=== PATIENT | female | born 1975 | race Caucasian/White ===

== ENCOUNTER 2022-07-24 08:40 | Outpatient (CLI) | payer OTHER, SELFPAY ==
--- NOTE | ~2022-07-24 | MMUS_ITS ---
EXAMINATION: MM diagnostic damaris BI w fabian, US breast RT limited HISTORY: Palpable lump in the upper outer quadrant of the right breast TECHNIQUE: Craniocaudal, mediolateral, and mediolateral oblique 3-D tomosynthesis images of the esha ts were performed and synthetic 2-D images were generated. CAD analysis was submitted and interpreted . High resolution limited by breast ultrasound was performed. COMPARISON: No prior mammogram is currently available for comparison. BREAST PARENCHYMAL COMPOSITION: The breasts are heterogeneously dense, which may obscure small masses . FINDINGS: MAMMOGRAPHIC FINDINGS: Right breast: Approximately 4.0 x 3.7 cm irregular, spiculated, high density mass with associated idania cification the middle third of the upper-outer quadrant of the breast at the 11:00 location 6 cm from the nipple corresponding to the palpable abnormality of concern. There is an intramammary lymph node in the upper outer quadrant of the breast. Left breast: There is no suspicious mass, calcification, or architectural distortion to suggest rosalina gnancy. Scattered benign-appearing calcifications are present. ULTRASOUND: There is an approximately 6.8 x 4.7 x 4.0 cm irregular, parallel, hypoechoic mass with spiculated and indistinct margins, internal vascularity, and posterior acoustic shadowing at 11:30 location corresp onding to the palpable abnormality of concern. One axillary lymph node demonstrates eccentric cortica l thickening during up to 5 mm. IMPRESSION: 1. Suspicious right breast mass corresponding to the palpable abnormality of concern and right axilla ry lymph node with eccentric cortical thickening. 2. Ultrasound-guided biopsy is recommended. BI-RADS category 5, highly suggestive of malignancy. Reviewed, dictated and finalized at location A. IMPRESSION: 1. Suspicious right breast mass corresponding to the palpable abnormality of co ncern and right axillary lymph node with eccentric cortical thickening. 2. Ultrasound-guided biopsy is recommended. BI-RADS category 5, highly suggestive of malignancy.
== END 2022-07-24 08:41 | disposition home or self-care (01) ==
DX: N63.12 Unspecified lump in the right breast, upper inner quadrant (principal)
CPT/HCPCS: 76642; 77062; 77066; G0279

== ENCOUNTER 2022-08-16 12:44 | Outpatient (CLI) | payer OTHER, SELFPAY ==
--- NOTE | ~2022-08-16 | MMUS_ITS ---
EXAMINATION: US breast biopsy RT w image, MM post biopsy diagnostic RT DATE: 08/16/2022 15:24 (accession [id number]), 08/16/2022 15:13 (accession [id number]) INDICATION: Suspicious mass in the upper outer quadrant of the right breast Ultrasound-guided core bi opsy is requested to evaluate for malignancy. TECHNIQUE AND FINDINGS: The risks and potential benefits of the procedure were discussed with the patient including bleeding and infection. A time out was performed. The skin of the right breast was prepared and draped in usua l sterile fashion. 1% lidocaine was used for superficial anesthesia. 1% lidocaine with epinephrine wa s used for deep anesthesia. A vacuum-assisted biopsy needle was advanced through to the outer edge of the region of interest from a lateral approach utilizing sonographic guidance. A total of five tissue core samples were obtained through the lesion. A tissue marker clip was then placed at the biopsy site. Hemostasis was achieved . A sterile bandage was applied. The patient tolerated procedure well and there was no evidence of immediate complication. The patient was given verbal instructions to return to the Emergency Department in the event of severe breast pa in or rapid breast enlargement. A two view right breast mammogram was obtained to document tissue mar ker clip placement. IMPRESSION: 1. Successful ultrasound-guided vacuum-assisted biopsy of right breast mass with tissue marker placem ent. Reviewed, dictated and finalized at location A. IMPRESSION: 1. Successful ultrasound-guided vacuum-assisted biopsy of right breast mass wit h tissue marker placement.
== END 2022-08-16 12:45 | disposition home or self-care (01) ==
DX: C50.211 Malignant neoplasm of upper-inner quadrant of right female breast (principal); Z17.0 Estrogen receptor positive status [ER+]
CPT/HCPCS: 19083; 77065; 88305; 88342; A4648